=== PATIENT | female | born 1945 | race Caucasian/White ===

== ENCOUNTER 2021-01-25 11:37 | Inpatient (IN) ==
[2021-01-25 13:27] LABS: ABS Basophils 0.1 10^3/ul (0-0.2); ABS Eosinophils 0.2 10^3/ul (0-0.6); ABS Lymphocytes 1.1 10^3/ul (1.0-4.8); ABS Neutrophils 7.1 10^3/ul (1.5-7.7); Eosinophil % 2.5 %; Hematocrit 24 % (35-47); Hemoglobin 8.2 g/dL (12.0-16.0); Lymphocyte % 11.7 %; Mean Corpuscular HGB Conc 34 g/dL (31-36); Mean Corpuscular Hemoglobin 31 pg (27-31); Mean Corpuscular Volume 93 fL (80-97); Mean Platelet Volume 7.6 fL (7.4-10.4); Platelet Count 264 10^3/uL (150-450); Red Blood Count 2.63 10^6 /uL (3.70-4.87); Red Cell Distribution Width 15 % (10-15); White Blood Count 9.5 10^3/uL (3.5-10.8)
[2021-01-25 13:40] LABS: ALT 14 U/L (7-52); AST 15 U/L (13-39); Albumin 3.8 g/dL (3.2-5.2); Albumin/Globulin Ratio 1.2 (1-3); Alkaline Phosphatase 101 U/L (35-149); Anion Gap 11 mmol/L (2-11); Blood Urea Nitrogen 45 mg/dL (6-24); CO2 Carbon Dioxide 17 mmol/L (22-32); Calcium 9.1 mg/dL (8.6-10.3); Chloride 104 mmol/L (101-111); EGFR African American 37.8 (>60); EGFR Non-African American 31.3 (>60); Globulin 3.3 g/dL (2-4); Glucose 256 mg/dL (70-100); Potassium 4.4 mmol/L (3.5-5.0); Sodium 132 mmol/L (135-145); Total Protein 7.1 g/dL (6.4-8.9)
[2021-01-25 13:48] LABS: INR 1.1 (0.86-1.15)
[2021-01-25 14:01] LABS: Troponin I 0.08 ng/mL (<0.03)
[2021-01-25 14:49] LABS: % Iron Saturation 9 % (15-55); Iron 36 ug/dL (50-212); Total Iron Binding Capacity 400 mcg/dL (250-450); Transferrin 286 mg/dL (203-362); Unsaturated Iron Binding < 385 ug/dL
[2021-01-25 16:20] LABS: Rapid COVID-19 Molecular Undetected (Undetected)
[2021-01-25 16:25] LABS: Troponin I 0.08 ng/mL (<0.03)
[2021-01-25] MEDS ORDERED: Dextrose 50% Syringe 50 ml 25 GM/50 ML SYRINGE IV PUSH PRN (18:42)
[2021-01-25] MEDS: Furosemide 40 mg/4 ml IV VIAL IV SCH (19:16)
[2021-01-25] MEDS: Insulin GLARGINE 100 un/ml 10 ml VIAL SUBCUT SCH (19:36)
[2021-01-25] MEDS: Heparin 5000 UNITS/ML 1 mL VIAL SUBCUT SCH (19:37)
[2021-01-25 20:00] LABS: Troponin I 0.09 ng/mL (<0.03)
[2021-01-25 23:01] LABS: Troponin I 0.08 ng/mL (<0.03)
[2021-01-25 23:10] LABS: Urine Appearance Clear; Urine Bilirubin Negative (Negative); Urine Blood Negative (Negative); Urine Color Colorless; Urine Glucose Negative (Negative); Urine Ketones Negative (Negative); Urine Nitrite Negative (Negative); Urine Protein Negative (Negative); Urine Specific Gravity 1.005 (1.002-1.030); Urine Urobilinogen Negative (Negative)
[2021-01-25 23:36] LABS: Anion Gap 9 mmol/L (2-11); Blood Urea Nitrogen 46 mg/dL (6-24); CO2 Carbon Dioxide 21 mmol/L (22-32); Calcium 8.4 mg/dL (8.6-10.3); Chloride 106 mmol/L (101-111); EGFR African American 33.2 (>60); EGFR Non-African American 27.5 (>60); Glucose 180 mg/dL (70-100); Potassium 4.2 mmol/L (3.5-5.0); Sodium 136 mmol/L (135-145)
[2021-01-26 05:40] LABS: Phosphorus 4.9 mg/dL (2.5-5.0)
[2021-01-26 05:48] LABS: Troponin I 0.08 ng/mL (<0.03)
[2021-01-26 05:58] LABS: Iron 47 ug/dL (50-212)
[2021-01-26 06:13] LABS: TSH Ultra Thyroid Stim Horm 5.49 mcIU/mL (0.34-5.60)
[2021-01-26 06:19] LABS: Ferritin 46.7 ng/mL (11-307)
[2021-01-26 06:24] LABS: Vitamin B12 > 1450 pg/mL (180-914)
[2021-01-26 08:41] LABS: Calcium 8.8 mg/dL (8.6-10.3); EGFR African American 35.7 (>60); EGFR Non-African American 29.5 (>60); Potassium 3.8 mmol/L (3.5-5.0)
[2021-01-26 08:55] LABS: ABS Basophils 0.1 10^3/ul (0-0.2); ABS Eosinophils 0.3 10^3/ul (0-0.6); ABS Lymphocytes 1.1 10^3/ul (1.0-4.8); ABS Monocytes 0.9 10^3/ul (0-0.8); ABS Neutrophils 6.2 10^3/ul (1.5-7.7); Hematocrit 24 % (35-47); Lymphocyte % 12.4 %; Mean Corpuscular HGB Conc 33 g/dL (31-36); Mean Corpuscular Hemoglobin 31 pg (27-31); Mean Corpuscular Volume 92 fL (80-97); Mean Platelet Volume 8.1 fL (7.4-10.4); Platelet Count 272 10^3/uL (150-450); Red Cell Distribution Width 15 % (10-15); White Blood Count 8.6 10^3/uL (3.5-10.8)
[2021-01-26] MEDS: Furosemide 40 mg/4 ml IV VIAL IV SCH (08:59)
[2021-01-26] MEDS: Heparin 5000 UNITS/ML 1 mL VIAL SUBCUT SCH ×2 (08:59→19:58)
[2021-01-26 16:32] LABS: % Iron Saturation 13 % (15-55); Total Iron Binding Capacity 367 mcg/dL (250-450); Transferrin 262 mg/dL (203-362); Unsaturated Iron Binding < 352 ug/dL
[2021-01-26] MEDS: Insulin GLARGINE 100 un/ml 10 ml VIAL SUBCUT SCH (19:58)
[2021-01-27 04:36] LABS: Hematocrit 22 % (35-47); Hemoglobin 7.6 g/dL (12.0-16.0); Mean Corpuscular HGB Conc 35 g/dL (31-36); Mean Corpuscular Hemoglobin 32 pg (27-31); Mean Corpuscular Volume 92 fL (80-97); Mean Platelet Volume 7.3 fL (7.4-10.4); Platelet Count 223 10^3/uL (150-450); Red Blood Count 2.36 10^6 /uL (3.70-4.87); Red Cell Distribution Width 15 % (10-15); White Blood Count 8.6 10^3/uL (3.5-10.8)
[2021-01-27 04:56] LABS: Calcium 8.6 mg/dL (8.6-10.3); EGFR African American 33.9 (>60); Magnesium 1.9 mg/dL (1.9-2.7); Potassium 4.4 mmol/L (3.5-5.0)
[2021-01-27] MEDS: Heparin 5000 UNITS/ML 1 mL VIAL SUBCUT SCH (07:46)
[2021-01-27] MEDS: Furosemide 40 mg/4 ml IV VIAL IV SCH (07:47)
[2021-01-27] MEDS ORDERED: Furosemide 20 mg/2 ml IV VIAL IV ONE (09:31)
[2021-01-27] MEDS ORDERED: Iron Sucrose 200 MG in NS 0.9% 100 ml BAG 100 ML IVPB ONE (09:53)
[2021-01-27 19:36] VITALS: BP 161/52
== END 2021-01-27 19:30 | disposition home or self-care (01) | DRG 292 ==
LOC: ED 11:37 → MED 17:02
PROVIDERS: ADMIT Internal Medicine; ATTEND Internal Medicine

== ENCOUNTER 2023-07-08 12:38 | Inpatient (IN) ==
[2023-07-08 13:09] LABS: ABS Basophils 0.1 10^3/uL (0.0-0.1); ABS Lymphocytes 0.4 10^3/uL (1.0-4.8); ABS Monocytes 0.5 10^3/uL (0.0-0.9); ABS Neutrophils 17.4 10^3/uL (1.5-7.6); Hematocrit 31.3 % (35-45); Hemoglobin 10.2 g/dL (11.5-14.3); Lymphocyte % 2.2 %; Mean Corpuscular Hemoglobin 29.7 pg (27-33); Mean Corpuscular Hgb Conc 32.7 g/dL (31-36); Mean Corpuscular Volume 90.7 fL (80-97); Mean Platelet Volume 8.4 fL (7.5-11.2); Platelet Count 200 10^3/uL (150-450); Red Blood Count 3.45 10^6/uL (3.63-4.92); Red Cell Distribution Width 13.6 % (12-17); White Blood Count 18.4 10^3/uL (3.8-11.8)
[2023-07-08 13:34] LABS: Albumin 3.7 g/dL (3.2-5.2); Albumin/Globulin Ratio 0.9 (1-3); C Reactive Protein 38.41 mg/L (<8.01); Creatinine, Serum 2.95 mg/dL (0.51-0.95); Globulin 3.9 g/dL (2-4); Potassium 4.4 mmol/L (3.5-5.0); Total Bilirubin 0.6 mg/dL (0.2-1.0); Total Protein 7.6 g/dL (6.4-8.9); eGFR CKD-EPI 15.5 (>60)
[2023-07-08 13:56] LABS: PCO2 Arterial 30 mmHg (35-45); PO2 Arterial 75 mmHg (80-100)
[2023-07-08] MEDS: Lactated Ringers 1000 ml BAG 1,000 ML IV ONE ×3 (14:09→19:59)
[2023-07-08] MEDS: Acetaminophen IV 1 GM/100ML 1,000 MG/100 ML BAG IV ONE (14:09)
[2023-07-08 14:37] LABS: High Sensitivity Troponin 1 Hr 127 pg/mL (<15)
[2023-07-08] MEDS ORDERED: Dextrose 50% Syringe 50 ml 25 GM/50 ML SYRINGE IV PUSH PRN ×4 (14:42→19:16)
[2023-07-08 15:04] LABS: Urine Appearance Clear; Urine Bacteria Absent /HPF (Absent); Urine Bilirubin Negative (Negative); Urine Blood Trace (Negative); Urine Color Light-Yellow; Urine Glucose 4+ (>=1000 mg/dL) (Negative); Urine Ketones Negative (Negative); Urine Nitrite Negative (Negative); Urine Protein 1+ (>=30 mg/dL) (Negative); Urine Red Blood Cell Trace(0-2/hpf) /HPF (0-Trace); Urine Specific Gravity 1.014 (1.002-1.030); Urine Urobilinogen Negative (Negative); Urine White Blood Cell Trace(0-5/hpf) /HPF (0-Trace); Urine pH 5.5 (5.0-8.0)
[2023-07-08] MEDS: Morphine 2 MG/ML SYRINGE IV ONE (16:13)
[2023-07-08 17:03] LABS: Osmolality Serum 326 mOsm/kg (275-295)
[2023-07-08] MEDS: Remdesivir 100 mg Vial 200 MG in NS 0.9% 250 ml 210 ML IV ONE (18:17)
[2023-07-08 18:51] LABS: INR 1.15 (0.83-1.13)
[2023-07-08 19:01] LABS: Albumin 3.3 g/dL (3.2-5.2); Calcium 8.7 mg/dL (8.6-10.3); Creatinine, Serum 2.88 mg/dL (0.51-0.95); Globulin 3.4 g/dL (2-4); Potassium 3.6 mmol/L (3.5-5.0); Total Bilirubin 0.4 mg/dL (0.2-1.0); Total Protein 6.7 g/dL (6.4-8.9)
[2023-07-08] MEDS: Lidocaine PATCH 4% TOPICAL SCH (19:50)
[2023-07-08] MEDS: Potassium Chlor 20 meq TAB.ER PO ONE (19:51)
[2023-07-08 19:52] LABS: % Iron Saturation 10 % (15-55); .Transferrin 204 mg/dL (203-362); Iron 29 ug/dL (50-212); Total Iron Binding Capacity 286 mcg/dL (250-450); Unsaturated Iron Binding 257 ug/dL
[2023-07-08 20:13] LABS: Ferritin 169.7 ng/mL (11-307)
[2023-07-08 20:17] LABS: Folate > 20.00 ng/mL (5.90-24.80)
[2023-07-08 20:18] LABS: Vitamin B12 913 pg/mL (180-914)
[2023-07-08] MEDS: Heparin 5000 UNITS/ML 1 mL VIAL SUBCUT SCH (22:09)
[2023-07-09 06:00] LABS: ABS Basophils 0.1 10^3/uL (0.0-0.1); ABS Lymphocytes 1.1 10^3/uL (1.0-4.8); ABS Monocytes 1.3 10^3/uL (0.0-0.9); ABS Neutrophils 14.5 10^3/uL (1.5-7.6); Eosinophil % 0.2 %; Hemoglobin 9.6 g/dL (11.5-14.3); Lymphocyte % 6.7 %; Mean Corpuscular Hemoglobin 30.5 pg (27-33); Mean Corpuscular Hgb Conc 34.4 g/dL (31-36); Mean Corpuscular Volume 88.6 fL (80-97); Mean Platelet Volume 8.2 fL (7.5-11.2); Platelet Count 208 10^3/uL (150-450); Red Blood Count 3.17 10^6/uL (3.63-4.92); Red Cell Distribution Width 13.5 % (12-17)
[2023-07-09 06:15] LABS: INR 1.06 (0.83-1.13)
[2023-07-09 06:16] LABS: Albumin 3.3 g/dL (3.2-5.2); Calcium 8.9 mg/dL (8.6-10.3); Creatinine, Serum 2.88 mg/dL (0.51-0.95); Globulin 3.4 g/dL (2-4); Potassium 4.2 mmol/L (3.5-5.0); Total Bilirubin 0.3 mg/dL (0.2-1.0); Total Protein 6.7 g/dL (6.4-8.9)
[2023-07-09] MEDS: Morphine 2 MG/ML SYRINGE IV PRN (06:30)
[2023-07-09] MEDS ORDERED: Insulin GLARGINE 100 un/ml 10 ml VIAL SUBCUT SCH (09:00)
[2023-07-09 09:23] LABS: Urine Appearance Clear; Urine Bacteria Absent /HPF (Absent); Urine Bilirubin Negative (Negative); Urine Blood Trace (Negative); Urine Color Light-Yellow; Urine Glucose 4+ (>=1000 mg/dL) (Negative); Urine Ketones Negative (Negative); Urine Nitrite Negative (Negative); Urine Protein 1+ (>=30 mg/dL) (Negative); Urine Red Blood Cell Trace(0-2/hpf) /HPF (0-Trace); Urine Squamous Epithelial Cell Present /HPF (Absent); Urine Urobilinogen Negative (Negative); Urine White Blood Cell Trace(0-5/hpf) /HPF (0-Trace); Urine pH 5.5 (5.0-8.0)
[2023-07-09] MEDS: Insulin GLARGINE 100 un/ml 10 ml VIAL SUBCUT SCH (09:56)
[2023-07-09] MEDS ORDERED: HYDROmorphone 0.5 MG/0.5 ML SYRINGE IV PRN (10:21)
[2023-07-09] MEDS ORDERED: Morphine 2 MG/ML SYRINGE IV SCH (11:00)
[2023-07-09] MEDS ORDERED: Sulfur Hexaflouride MICROSPHR 25 MG VIAL ONE (13:16)
[2023-07-09] MEDS: Lidocaine PATCH 4% TOPICAL SCH (18:03)
[2023-07-09] MEDS: Remdesivir 100 mg Vial 100 MG in NS 0.9% 250 ml 230 ML IV SCH (22:04)
[2023-07-09] MEDS: Benzocaine/Menthol LOZ MT PRN (23:58)
[2023-07-10 06:28] LABS: ABS Basophils 0.1 10^3/uL (0.0-0.1); ABS Eosinophils 0.3 10^3/uL (0.0-0.5); ABS Lymphocytes 0.8 10^3/uL (1.0-4.8); ABS Monocytes 1.2 10^3/uL (0.0-0.9); ABS Neutrophils 10.1 10^3/uL (1.5-7.6); ABS Nucleated RBC 0.02 10^3/ul; Eosinophil % 2.3 %; Hematocrit 26.6 % (35-45); Hemoglobin 9.1 g/dL (11.5-14.3); Lymphocyte % 6.7 %; Mean Corpuscular Hemoglobin 30.4 pg (27-33); Mean Corpuscular Hgb Conc 34.1 g/dL (31-36); Mean Corpuscular Volume 89.1 fL (80-97); Mean Platelet Volume 8.3 fL (7.5-11.2); Nucleated Red Blood Cells % 0.1 %/100WBC (0.0-0.8); Platelet Count 204 10^3/uL (150-450); Red Blood Count 2.98 10^6/uL (3.63-4.92); Red Cell Distribution Width 13.6 % (12-17); White Blood Count 12.5 10^3/uL (3.8-11.8)
[2023-07-10 06:48] LABS: Albumin 3.1 g/dL (3.2-5.2); Calcium 8.5 mg/dL (8.6-10.3); Creatinine, Serum 2.84 mg/dL (0.51-0.95); Globulin 3.2 g/dL (2-4); Magnesium 1.9 mg/dL (1.9-2.7); Potassium 4.2 mmol/L (3.5-5.0); Total Bilirubin 0.4 mg/dL (0.2-1.0); Total Protein 6.3 g/dL (6.4-8.9); eGFR CKD-EPI 16.3 (>60)
[2023-07-10] MEDS: Lactated Ringers 1000 ml BAG 1,000 ML IV SCH (08:58)
[2023-07-10] MEDS: Buffered Lidocaine 1% SYRIN 1 ml INTRADERM ONE (13:23)
[2023-07-10] MEDS ORDERED: Magnesium Hydroxide LIQ 30 ML UDC PO PRN (21:48)
[2023-07-10] MEDS ORDERED: Polyethylene Glycol 3350 17 GM PACKET PO PRN (21:48)
[2023-07-10] MEDS: Saline NASAL SPRAY 0.65% BTL BOTH NARES PRN (22:10)
[2023-07-10] MEDS: Senna TAB 8.6 mg TAB PO PRN (22:29)
[2023-07-11 05:38] LABS: ABS Basophils 0.1 10^3/uL (0.0-0.1); ABS Eosinophils 0.3 10^3/uL (0.0-0.5); ABS Lymphocytes 0.9 10^3/uL (1.0-4.8); ABS Monocytes 1.3 10^3/uL (0.0-0.9); ABS Neutrophils 8.5 10^3/uL (1.5-7.6); Eosinophil % 2.8 %; Hematocrit 24.8 % (35-45); Hemoglobin 8.5 g/dL (11.5-14.3); Lymphocyte % 8.5 %; Mean Corpuscular Hemoglobin 30.3 pg (27-33); Mean Corpuscular Hgb Conc 34.3 g/dL (31-36); Mean Corpuscular Volume 88.3 fL (80-97); Mean Platelet Volume 7.8 fL (7.5-11.2); Platelet Count 185 10^3/uL (150-450); Red Blood Count 2.81 10^6/uL (3.63-4.92); Red Cell Distribution Width 13.5 % (12-17)
[2023-07-11 06:29] LABS: Albumin 2.8 g/dL (3.2-5.2); Creatinine, Serum 2.62 mg/dL (0.51-0.95); Globulin 2.9 g/dL (2-4); Magnesium 1.8 mg/dL (1.9-2.7); Potassium 4.5 mmol/L (3.5-5.0); Total Bilirubin 0.4 mg/dL (0.2-1.0); Total Protein 5.7 g/dL (6.4-8.9); eGFR CKD-EPI 17.9 (>60)
[2023-07-11] MEDS ORDERED: Buffered Lidocaine 1% SYRIN 1 ml INTRADERM ONE (09:00)
[2023-07-11] MEDS ORDERED: Lactated Ringers 1000 ml BAG 1,000 ML IV SCH (09:00)
[2023-07-11] MEDS ORDERED: Albuterol/Ipratropium NEB.SOL (2.5/0.5 MG) 3 ML NEB.SOLN INH PRN (09:01)
[2023-07-11] MEDS: Polyethylene Glycol 3350 17 GM PACKET PO SCH (10:46)
[2023-07-11] MEDS: Magnesium Hydroxide LIQ 30 ML UDC PO SCH (11:26)
[2023-07-11] MEDS: Senna TAB 8.6 mg TAB PO SCH (21:52)
[2023-07-12 06:43] LABS: ABS Basophils 0.1 10^3/uL (0.0-0.1); ABS Eosinophils 0.3 10^3/uL (0.0-0.5); ABS Lymphocytes 1.4 10^3/uL (1.0-4.8); ABS Monocytes 1.3 10^3/uL (0.0-0.9); ABS Neutrophils 9.4 10^3/uL (1.5-7.6); Eosinophil % 2.6 %; Hematocrit 24.4 % (35-45); Hemoglobin 8.2 g/dL (11.5-14.3); Mean Corpuscular Hemoglobin 29.8 pg (27-33); Mean Corpuscular Hgb Conc 33.8 g/dL (31-36); Mean Corpuscular Volume 88.3 fL (80-97); Mean Platelet Volume 8.2 fL (7.5-11.2); Platelet Count 204 10^3/uL (150-450); Red Blood Count 2.76 10^6/uL (3.63-4.92); Red Cell Distribution Width 13.6 % (12-17); White Blood Count 12.5 10^3/uL (3.8-11.8)
[2023-07-12 07:05] LABS: ALT 8 U/L (7-52); AST 11 U/L (13-39); Albumin 2.7 g/dL (3.2-5.2); Albumin/Globulin Ratio 0.9 (1-3); Alkaline Phosphatase 83 U/L (35-149); Anion Gap 9 mmol/L (2-16); Blood Urea Nitrogen 83 mg/dL (6-24); CO2 Carbon Dioxide 22 mmol/L (22-32); Calcium 8.3 mg/dL (8.6-10.3); Chloride 103 mmol/L (101-111); Creatinine, Serum 2.97 mg/dL (0.51-0.95); Globulin 3.1 g/dL (2-4); Glucose 182 mg/dL (70-100); Magnesium 2.2 mg/dL (1.9-2.7); Sodium 134 mmol/L (135-145); Total Bilirubin 0.4 mg/dL (0.2-1.0); Total Protein 5.8 g/dL (6.4-8.9); eGFR CKD-EPI 15.4 (>60)
[2023-07-12] MEDS: Furosemide 40 mg/4 ml IV VIAL IV SLOW PU ONE (08:58)
[2023-07-12 14:07] LABS: % Iron Saturation 11 % (15-55); .Transferrin 147 mg/dL (203-362); Iron 22 ug/dL (50-212); Total Iron Binding Capacity 206 mcg/dL (250-450); Unsaturated Iron Binding 184 ug/dL
[2023-07-12 14:16] LABS: TSH Ultra Thyroid Stim Horm 4.98 mcIU/mL (0.34-5.60)
[2023-07-12 14:24] LABS: Ferritin 99.8 ng/mL (11-307)
[2023-07-12 14:27] LABS: Folate > 20.00 ng/mL (5.90-24.80)
[2023-07-12 14:28] LABS: Vitamin B12 > 1450 pg/mL (180-914)
[2023-07-12 23:36] LABS: Hematocrit 28.4 % (35-45); Hemoglobin 9.8 g/dL (11.5-14.3)
[2023-07-13 06:09] LABS: ABS Basophils 0.1 10^3/uL (0.0-0.1); ABS Eosinophils 0.5 10^3/uL (0.0-0.5); ABS Lymphocytes 1.3 10^3/uL (1.0-4.8); ABS Monocytes 1.5 10^3/uL (0.0-0.9); ABS Neutrophils 11.5 10^3/uL (1.5-7.6); ABS Nucleated RBC 0.01 10^3/ul; Eosinophil % 3.5 %; Hematocrit 29.7 % (35-45); Hemoglobin 10.2 g/dL (11.5-14.3); Lymphocyte % 8.9 %; Mean Corpuscular Hemoglobin 29.6 pg (27-33); Mean Corpuscular Hgb Conc 34.5 g/dL (31-36); Mean Corpuscular Volume 85.8 fL (80-97); Mean Platelet Volume 7.7 fL (7.5-11.2); Nucleated Red Blood Cells % 0.1 %/100WBC (0.0-0.8); Platelet Count 246 10^3/uL (150-450); Red Blood Count 3.46 10^6/uL (3.63-4.92); Red Cell Distribution Width 13.9 % (12-17); White Blood Count 14.9 10^3/uL (3.8-11.8)
[2023-07-13 06:27] LABS: Albumin 2.9 g/dL (3.2-5.2); Albumin/Globulin Ratio 0.9 (1-3); Calcium 8.2 mg/dL (8.6-10.3); Creatinine, Serum 3.03 mg/dL (0.51-0.95); Globulin 3.1 g/dL (2-4); Magnesium 2.2 mg/dL (1.9-2.7); Potassium 4.8 mmol/L (3.5-5.0); Total Bilirubin 0.6 mg/dL (0.2-1.0); eGFR CKD-EPI 15.1 (>60)
[2023-07-13] MEDS: Iron Sucrose 200 MG in NS 0.9% 100 ml BAG 100 ML IVPB SCH (10:00)
[2023-07-13] MEDS ORDERED: ceFAZolin 2 GM PREMIX 2 GM/50 ML BAG ONE (12:18)
[2023-07-13] MEDS ORDERED: ROPIVACAINE 5 MG/ML 30 ML BTL (0.5%) ONE (12:43)
[2023-07-13] MEDS ORDERED: Buffered Lidocaine 1% SYRIN 1 ml ONE (12:56)
[2023-07-13] MEDS ORDERED: Bupivacaine 0.5% SDV PF 30ML VIAL ONE (13:41)
[2023-07-13] MEDS ORDERED: Sodium Chloride 0.9% 20 ML ONE (14:16)
[2023-07-13] MEDS ORDERED: Ondansetron 4 mg VIAL 2 MG/ML 2 ml VIAL ONE (14:23)
[2023-07-13] MEDS ORDERED: Acetaminophen IV 1 GM/100ML 1,000 MG/100 ML BAG IV ONE (14:24)
[2023-07-13] MEDS ORDERED: Magnesium Hydroxide LIQ 30 ML UDC PO PRN (15:05)
[2023-07-13] MEDS ORDERED: Lactulose 30 ml UDC PO PRN (15:05)
[2023-07-13] MEDS ORDERED: Ondansetron ODT 4 mg TAB 4 MG TAB PO PRN (15:05)
[2023-07-13] MEDS ORDERED: Lactated Ringers 1000 ml BAG 1,000 ML IV SCH (16:00)
[2023-07-13] MEDS ORDERED: hydrALAZINE 20 mg/ml 1 ML Vial IV ONE (16:37)
[2023-07-13] MEDS: Milrinone 200 MCG/ML PREMIXBAG 20,000 MCG/100 ML BAG IV SCH (18:08)
[2023-07-13] MEDS: Lactated Ringers 1000 ml BAG 1,000 ML IV SCH (19:24)
[2023-07-13] MEDS: Magnesium Hydroxide LIQ 30 ML UDC PO SCH (21:01)
[2023-07-14] MEDS: ceFAZolin 1 GM ADVAN 1 GM in NS 0.9% 50 ML 50 ML IVPB SCH (03:01)
[2023-07-14 06:25] LABS: Hematocrit 27.8 % (35-45); Hemoglobin 9.6 g/dL (11.5-14.3); Mean Corpuscular Hgb Conc 34.5 g/dL (31-36); Mean Corpuscular Volume 87.1 fL (80-97); Mean Platelet Volume 7.6 fL (7.5-11.2); Platelet Count 273 10^3/uL (150-450); Red Blood Count 3.19 10^6/uL (3.63-4.92); Red Cell Distribution Width 14.2 % (12-17); White Blood Count 14.1 10^3/uL (3.8-11.8)
[2023-07-14 06:38] LABS: ABS Basophils 0.1 10^3/uL (0.0-0.1); ABS Eosinophils 0.2 10^3/uL (0.0-0.5); ABS Monocytes 1.6 10^3/uL (0.0-0.9); ABS Neutrophils 11.3 10^3/uL (1.5-7.6); ABS Nucleated RBC 0.02 10^3/ul; Eosinophil % 1.1 %; Lymphocyte % 7.1 %; Nucleated Red Blood Cells % 0.1 %/100WBC (0.0-0.8)
[2023-07-14 06:49] LABS: Calcium 8.1 mg/dL (8.6-10.3); Creatinine, Serum 3.32 mg/dL (0.51-0.95); Magnesium 2.3 mg/dL (1.9-2.7); eGFR CKD-EPI 13.5 (>60)
[2023-07-14] MEDS: Insulin GLARGINE 100 un/ml 10 ml VIAL ONE (09:47)
[2023-07-14] MEDS: Vitamin THERAPEUTIC TAB PO SCH (09:58)
[2023-07-14] MEDS: Insulin GLARGINE 100 un/ml 10 ml VIAL SUBCUT SCH (09:59)
[2023-07-14] MEDS: Furosemide 40 mg/4 ml IV VIAL IV ONE (09:59)
[2023-07-14] MEDS: Furosemide 40 mg/4 ml IV VIAL ONE (10:25)
[2023-07-15 08:49] LABS: Calcium 8.4 mg/dL (8.6-10.3); Creatinine, Serum 3.9 mg/dL (0.51-0.95); Magnesium 2.6 mg/dL (1.9-2.7); Potassium 5.4 mmol/L (3.5-5.0); eGFR CKD-EPI 11.1 (>60)
[2023-07-15] MEDS: Lactated Ringers 1000 ml BAG 1,000 ML IV ONE (13:39)
[2023-07-15 14:47] LABS: Urine Appearance Turbid; Urine Bilirubin Negative (Negative); Urine Blood Trace (Negative); Urine Color Light-Yellow; Urine Glucose Negative (Negative); Urine Ketones Negative (Negative); Urine Nitrite Negative (Negative); Urine Protein Trace (Negative); Urine Specific Gravity 1.012 (1.002-1.030); Urine Urobilinogen Negative (Negative)
[2023-07-15 15:20] LABS: Urine Bacteria 1+ /HPF (Absent); Urine Red Blood Cell 2+(6-10/hpf) /HPF (0-Trace); Urine Squamous Epithelial Cell Present /HPF (Absent); Urine Transitional Epithelial Present /HPF (Absent); Urine White Blood Cell 3+(>20/hpf) /HPF (0-Trace)
[2023-07-15 16:36] LABS: Hematocrit 26.2 % (35-45); Hemoglobin 8.8 g/dL (11.5-14.3); Mean Corpuscular Hemoglobin 29.5 pg (27-33); Mean Corpuscular Hgb Conc 33.7 g/dL (31-36); Mean Corpuscular Volume 87.6 fL (80-97); Mean Platelet Volume 7.5 fL (7.5-11.2); Platelet Count 277 10^3/uL (150-450); Red Blood Count 2.99 10^6/uL (3.63-4.92); Red Cell Distribution Width 14.2 % (12-17); White Blood Count 15.7 10^3/uL (3.8-11.8)
[2023-07-15 16:51] LABS: Calcium 7.8 mg/dL (8.6-10.3); Creatinine, Serum 3.98 mg/dL (0.51-0.95); Potassium 5.1 mmol/L (3.5-5.0); eGFR CKD-EPI 10.9 (>60)
[2023-07-15 17:00] LABS: ABS Basophils 0.1 10^3/uL (0.0-0.1); ABS Eosinophils 0.2 10^3/uL (0.0-0.5); ABS Lymphocytes 0.7 10^3/uL (1.0-4.8); ABS Monocytes 1.9 10^3/uL (0.0-0.9); ABS Neutrophils 12.7 10^3/uL (1.5-7.6); ABS Nucleated RBC 0.02 10^3/ul; Eosinophil % 1.4 %; Lymphocyte % 4.6 %; Nucleated Red Blood Cells % 0.1 %/100WBC (0.0-0.8)
[2023-07-15 17:01] LABS: Acanthocytes 1+
[2023-07-15] MEDS: cefTRIAXone 1 gm/50 mL D5W 1 GM/50 ML BAG IV SCH (17:20)
[2023-07-16 07:35] LABS: Hematocrit 25.5 % (35-45); Hemoglobin 8.7 g/dL (11.5-14.3); Mean Corpuscular Hemoglobin 29.6 pg (27-33); Mean Corpuscular Hgb Conc 34.1 g/dL (31-36); Mean Corpuscular Volume 86.8 fL (80-97); Mean Platelet Volume 7.2 fL (7.5-11.2); Platelet Count 282 10^3/uL (150-450); Red Blood Count 2.94 10^6/uL (3.63-4.92); Red Cell Distribution Width 14.1 % (12-17); White Blood Count 16.8 10^3/uL (3.8-11.8)
[2023-07-16 08:14] LABS: ABS Basophils 0.1 10^3/uL (0.0-0.1); ABS Eosinophils 0.4 10^3/uL (0.0-0.5); ABS Lymphocytes 1.1 10^3/uL (1.0-4.8); ABS Monocytes 1.9 10^3/uL (0.0-0.9); ABS Neutrophils 13.3 10^3/uL (1.5-7.6); Eosinophil % 2.5 %; Lymphocyte % 6.5 %; RBC Morphology Normal (Normal)
[2023-07-16 08:23] LABS: Calcium 7.7 mg/dL (8.6-10.3); Creatinine, Serum 3.74 mg/dL (0.51-0.95); Magnesium 2.4 mg/dL (1.9-2.7); eGFR CKD-EPI 11.7 (>60)
[2023-07-16] MEDS: Insulin GLARGINE 100 un/ml 10 ml VIAL SUBCUT SCH (08:58)
[2023-07-16] MEDS: NS 0.9% 1000 ml BAG 1,000 ML IV SCH (14:15)
[2023-07-17 06:53] LABS: Hematocrit 26.3 % (35-45); Hemoglobin 8.7 g/dL (11.5-14.3); Platelet Count 304 10^3/uL (150-450)
[2023-07-17 07:55] LABS: Calcium 7.7 mg/dL (8.6-10.3); Creatinine, Serum 3.81 mg/dL (0.51-0.95); Magnesium 2.5 mg/dL (1.9-2.7); Potassium 5.1 mmol/L (3.5-5.0); eGFR CKD-EPI 11.4 (>60)
[2023-07-17] MEDS: Furosemide 20 mg/2 ml IV VIAL IV SLOW PU ONE (12:36)
[2023-07-17] MEDS: Ondansetron 4 mg VIAL 2 MG/ML 2 ml VIAL IV PRN (21:57)
[2023-07-18 06:04] LABS: Calcium 7.8 mg/dL (8.6-10.3); Creatinine, Serum 3.39 mg/dL (0.51-0.95); Potassium 4.8 mmol/L (3.5-5.0); eGFR CKD-EPI 13.2 (>60)
[2023-07-18 06:15] VITALS: BP 138/79
== END 2023-07-18 10:12 | DRG 521 ==
LOC: ED 12:38 → EDHOLD 12:38 → SUATTDRO 14:37 → SSU 07-09 10:30
PROVIDERS: ADMIT Student in an Organized Health Care Education/Training Program; ATTEND Internal Medicine

== ENCOUNTER 2023-07-18 10:10 | Inpatient (IN) ==
[2023-07-18] MEDS ORDERED: Polyethylene Glycol 3350 17 GM PACKET PO PRN (13:00)
[2023-07-18] MEDS ORDERED: Dextrose 50% Syringe 50 ml 25 GM/50 ML SYRINGE IV PUSH PRN (13:01)
[2023-07-18] MEDS: Senna TAB 8.6 mg TAB PO PRN (20:08)
[2023-07-18] MEDS ORDERED: Morphine ORAL.SOLN 10 mg 2 mg/ml UDC 5 ml (10 mg) PO PRN (22:14)
[2023-07-19] MEDS: Lactulose 30 ml UDC PO PRN (08:51)
[2023-07-19] MEDS: Insulin GLARGINE 100 un/ml 10 ml VIAL SUBCUT SCH (09:17)
[2023-07-19] MEDS: NS 0.9% 1000 ml BAG 1,000 ML IV SCH (17:20)
[2023-07-20 06:58] LABS: ABS Basophils 0.1 10^3/uL (0.0-0.1); ABS Eosinophils 0.2 10^3/uL (0.0-0.5); ABS Lymphocytes 1.1 10^3/uL (1.0-4.8); ABS Monocytes 1.4 10^3/uL (0.0-0.9); ABS Neutrophils 14.7 10^3/uL (1.5-7.6); ABS Nucleated RBC 0.01 10^3/ul; Eosinophil % 1.3 %; Hematocrit 27.2 % (35-45); Hemoglobin 9.2 g/dL (11.5-14.3); Lymphocyte % 6.1 %; Mean Corpuscular Hemoglobin 29.8 pg (27-33); Mean Corpuscular Hgb Conc 33.7 g/dL (31-36); Mean Corpuscular Volume 88.5 fL (80-97); Mean Platelet Volume 6.8 fL (7.5-11.2); Platelet Count 317 10^3/uL (150-450); Red Blood Count 3.08 10^6/uL (3.63-4.92); White Blood Count 17.5 10^3/uL (3.8-11.8)
[2023-07-20 07:13] LABS: Albumin 2.6 g/dL (3.2-5.2); Albumin/Globulin Ratio 0.8 (1-3); Calcium 8.1 mg/dL (8.6-10.3); Creatinine, Serum 3.01 mg/dL (0.51-0.95); Globulin 3.2 g/dL (2-4); Total Bilirubin 0.5 mg/dL (0.2-1.0); Total Protein 5.8 g/dL (6.4-8.9); eGFR CKD-EPI 15.2 (>60)
[2023-07-20 12:32] LABS: C Reactive Protein 68.33 mg/L (<8.01)
[2023-07-20] MEDS: cefTRIAXone 1 gm/50 mL D5W 1 GM/50 ML BAG IV SCH (16:20)
[2023-07-20 20:54] LABS: Urine Appearance Clear; Urine Bilirubin Negative (Negative); Urine Blood Negative (Negative); Urine Color Colorless; Urine Glucose Trace (Negative); Urine Ketones Negative (Negative); Urine Nitrite Negative (Negative); Urine Protein Trace (Negative); Urine Specific Gravity 1.006 (1.002-1.030); Urine Urobilinogen Negative (Negative)
[2023-07-22 02:54] LABS: ABS Basophils 0.1 10^3/uL (0.0-0.1); ABS Eosinophils 0.2 10^3/uL (0.0-0.5); ABS Lymphocytes 1.3 10^3/uL (1.0-4.8); ABS Monocytes 1.5 10^3/uL (0.0-0.9); Eosinophil % 1.3 %; Hemoglobin 8.9 g/dL (11.5-14.3); Lymphocyte % 7.9 %; Mean Corpuscular Hemoglobin 30.8 pg (27-33); Mean Corpuscular Hgb Conc 34.2 g/dL (31-36); Mean Corpuscular Volume 90.2 fL (80-97); Mean Platelet Volume 6.8 fL (7.5-11.2); Platelet Count 300 10^3/uL (150-450); Red Blood Count 2.88 10^6/uL (3.63-4.92); Red Cell Distribution Width 14.5 % (12-17)
[2023-07-22] MEDS: Furosemide 40 mg/4 ml IV VIAL IV ONE (03:04)
[2023-07-22 03:07] LABS: Albumin 2.7 g/dL (3.2-5.2); Albumin/Globulin Ratio 0.8 (1-3); Calcium 8.2 mg/dL (8.6-10.3); Creatinine, Serum 2.82 mg/dL (0.51-0.95); Globulin 3.2 g/dL (2-4); Potassium 4.5 mmol/L (3.5-5.0); Total Bilirubin 0.5 mg/dL (0.2-1.0); Total Protein 5.9 g/dL (6.4-8.9); eGFR CKD-EPI 16.4 (>60)
[2023-07-22] MEDS ORDERED: Ondansetron ODT 4 mg TAB 4 MG TAB SL PRN (03:53)
[2023-07-22 05:45] LABS: High Sensitivity Troponin 1 Hr 90 pg/mL (<15)
[2023-07-22] MEDS: Insulin GLARGINE 100 un/ml 10 ml VIAL SUBCUT SCH (08:15)
[2023-07-23 06:54] LABS: ABS Basophils 0.1 10^3/uL (0.0-0.1); ABS Eosinophils 0.2 10^3/uL (0.0-0.5); ABS Lymphocytes 1.3 10^3/uL (1.0-4.8); ABS Monocytes 1.5 10^3/uL (0.0-0.9); ABS Neutrophils 12.3 10^3/uL (1.5-7.6); Eosinophil % 1.6 %; Hematocrit 25.2 % (35-45); Hemoglobin 8.4 g/dL (11.5-14.3); Lymphocyte % 8.6 %; Mean Corpuscular Hemoglobin 29.8 pg (27-33); Mean Corpuscular Hgb Conc 33.4 g/dL (31-36); Mean Corpuscular Volume 89.4 fL (80-97); Mean Platelet Volume 6.9 fL (7.5-11.2); Platelet Count 300 10^3/uL (150-450); Red Blood Count 2.83 10^6/uL (3.63-4.92); Red Cell Distribution Width 14.3 % (12-17); White Blood Count 15.5 10^3/uL (3.8-11.8)
[2023-07-23 07:11] LABS: Calcium 8.3 mg/dL (8.6-10.3); Creatinine, Serum 2.89 mg/dL (0.51-0.95); Potassium 4.3 mmol/L (3.5-5.0); eGFR CKD-EPI 15.9 (>60)
[2023-07-25 06:55] LABS: ABS Basophils 0.1 10^3/uL (0.0-0.1); ABS Eosinophils 0.2 10^3/uL (0.0-0.5); ABS Lymphocytes 0.9 10^3/uL (1.0-4.8); ABS Monocytes 1.4 10^3/uL (0.0-0.9); ABS Neutrophils 10.5 10^3/uL (1.5-7.6); Eosinophil % 1.7 %; Hematocrit 21.6 % (35-45); Hemoglobin 7.2 g/dL (11.5-14.3); Mean Corpuscular Hemoglobin 29.7 pg (27-33); Mean Corpuscular Hgb Conc 33.1 g/dL (31-36); Mean Corpuscular Volume 89.8 fL (80-97); Platelet Count 298 10^3/uL (150-450); Red Blood Count 2.41 10^6/uL (3.63-4.92); Red Cell Distribution Width 14.7 % (12-17); White Blood Count 13.1 10^3/uL (3.8-11.8)
[2023-07-25 07:26] LABS: Calcium 8.3 mg/dL (8.6-10.3); Creatinine, Serum 2.85 mg/dL (0.51-0.95); Potassium 4.5 mmol/L (3.5-5.0); eGFR CKD-EPI 16.2 (>60)
[2023-07-26 06:23] LABS: ABS Basophils 0.1 10^3/uL (0.0-0.1); ABS Eosinophils 0.2 10^3/uL (0.0-0.5); ABS Monocytes 1.3 10^3/uL (0.0-0.9); ABS Neutrophils 8.6 10^3/uL (1.5-7.6); ABS Nucleated RBC 0.01 10^3/ul; Eosinophil % 1.7 %; Hematocrit 26.3 % (35-45); Lymphocyte % 9.2 %; Mean Corpuscular Hemoglobin 31.4 pg (27-33); Mean Corpuscular Hgb Conc 34.3 g/dL (31-36); Mean Corpuscular Volume 91.5 fL (80-97); Mean Platelet Volume 7.1 fL (7.5-11.2); Nucleated Red Blood Cells % 0.1 %/100WBC (0.0-0.8); Platelet Count 300 10^3/uL (150-450); Red Blood Count 2.87 10^6/uL (3.63-4.92); Red Cell Distribution Width 15.1 % (12-17); White Blood Count 11.2 10^3/uL (3.8-11.8)
[2023-07-27 06:52] LABS: ABS Basophils 0.1 10^3/uL (0.0-0.1); ABS Eosinophils 0.3 10^3/uL (0.0-0.5); ABS Monocytes 1.4 10^3/uL (0.0-0.9); ABS Neutrophils 8.9 10^3/uL (1.5-7.6); Eosinophil % 2.4 %; Hematocrit 25.8 % (35-45); Hemoglobin 8.8 g/dL (11.5-14.3); Lymphocyte % 8.4 %; Mean Corpuscular Hemoglobin 31.1 pg (27-33); Mean Corpuscular Hgb Conc 34.1 g/dL (31-36); Mean Corpuscular Volume 91.3 fL (80-97); Platelet Count 289 10^3/uL (150-450); Red Blood Count 2.83 10^6/uL (3.63-4.92); Red Cell Distribution Width 15.4 % (12-17); White Blood Count 11.6 10^3/uL (3.8-11.8)
[2023-07-27 07:30] LABS: Albumin 2.9 g/dL (3.2-5.2); Albumin/Globulin Ratio 0.9 (1-3); Calcium 8.6 mg/dL (8.6-10.3); Creatinine, Serum 2.94 mg/dL (0.51-0.95); Globulin 3.2 g/dL (2-4); Potassium 4.6 mmol/L (3.5-5.0); Total Bilirubin 0.5 mg/dL (0.2-1.0); Total Protein 6.1 g/dL (6.4-8.9); eGFR CKD-EPI 15.6 (>60)
[2023-07-27] MEDS: Heparin 5000 UNITS/ML 1 mL VIAL SUBCUT SCH (08:39)
[2023-07-29 06:34] LABS: ABS Basophils 0.1 10^3/uL (0.0-0.1); ABS Eosinophils 0.3 10^3/uL (0.0-0.5); ABS Monocytes 1.1 10^3/uL (0.0-0.9); ABS Neutrophils 6.5 10^3/uL (1.5-7.6); Eosinophil % 3.6 %; Hematocrit 27.4 % (35-45); Hemoglobin 9.5 g/dL (11.5-14.3); Lymphocyte % 10.6 %; Mean Corpuscular Hgb Conc 34.7 g/dL (31-36); Mean Corpuscular Volume 92.1 fL (80-97); Mean Platelet Volume 7.2 fL (7.5-11.2); Platelet Count 326 10^3/uL (150-450); Red Blood Count 2.98 10^6/uL (3.63-4.92); Red Cell Distribution Width 15.9 % (12-17)
[2023-07-30 06:47] VITALS: BP 129/64
[2023-07-30] MEDS ORDERED: Enoxaparin 30 MG/0.3 ML SYR SUBCUT SCH (20:00)
== END 2023-07-30 17:20 | disposition home or self-care (01) | DRG 559 ==
LOC: PMRU 10:29
PROVIDERS: ADMIT Physical Medicine & Rehabilitation; ATTEND Physical Medicine & Rehabilitation